=== PATIENT | male | born 1940 | race Caucasian/White ===

== ENCOUNTER → 2016-11-07 | Day surgery (SDC) | payer MEDICARE ==
[~2016-11-07] MED LIST: BACITRACIN OINT 28 GM TUBE TOP ONE; CEFAZOLIN 1 GM VIAL ONE; DEXAMETHASONE 4 MG/ML VIAL IV ONE; EPHEDrine 50 MG/ML VIAL IM ONE; FENTANYL 100 MCG/2 ML VIAL IV ONE; FENTANYL 100 MCG/2 ML VIAL IV PRN; HYDROCODONE 5 MG/ACETAMIN 325 MG TAB ONE; HYDROmorphone 1 MG INJECTION IV PRN; HYDROmorphone 2 MG/ML VIAL IM ONE; LABETALOL 20 MG/4 ML SYRINGE IV PRN; LIDOCAINE 100 MG PFS IV ONE; MEPERIDINE 25 MG/ML TUBEX IV PRN; MIDAZOLAM 2 MG/2 ML VIAL IV ONE; ONDANSETRON HCL 4 MG ODT TAB PO PRN; ONDANSETRON HCL 4 MG/2 ML VIAL IV ONE; ONDANSETRON HCL 4 MG/2 ML VIAL IV PRN; ONDANSETRON HCL 4 MG/2 ML VIAL ONE; OXYMETAZOLINE 0.05% NASAL SPRAY NAS ONE; PHENYLEPHRINE 10 MG/ML VIAL IC ONE; PROPOFOL 200 MG/20 ML VIAL IV ONE; SODIUM CHLORIDE 0.9% 10 ML FLUSH FLUSH ONE; SUCCINYLCHOLINE 20 MG/1 ML INJ 10 ML MDV IV ONE; hydrALAZINE 20 MG/ML VIAL IV PRN
--- NOTE | 2016-11-07 11:07 | HIM.ANES ---
Anesthesia Evaluation & Plan Diagnoses: CHRONIC SINUSITIS, UNSPECIFIED (11/07/16) - Focused Review of Systems Cardiac History: Yes: Hx Cardiac Disorders, Hx Abnormal Cholesterol/ Hyperlipidemia HEENT: Yes: Cataract Removal, Hx Vision Problem (PRESCIPTION GLASSES), Other HEENT Problems Hx Other HEENT Surgery: TONSILECTOMY Hx Other HEENT Problems: ALLERGIC RHINNIITS AND SINNUSITIS Gastrointestinal: Yes: Hx Gastroesophageal Reflux Disease (CONTROLLED WITH DIET) , Hx Gastrointestinal Disorders, Hx Colonoscopy (2016 NORMAL) Neurological/Musculoskeletal: Yes: Hx Back Pain No: Hx Neurological Disorders Psychological: No Hx Mental/Emotional Disorders Blood/Autoimmune: No: Hx AIDS, Hx Hepatitis (type) Smoking Status: Former smoker Surgical History: Yes: Appendectomy Other Surgical History: TONSILECTOMY - Focused Physical Exam NPO since: after Midnight Mallampati: Class II Thyromental Distance: Greater than 3 Neck: Full Range of Motion Dental: Normal - no significant findings Cardiovascular/Chest: Normal Respiratory: Lungs clear Any problems with anesthesia, including nausea and vomiting?: No Any relatives with a history of Malignant Hyperthermia?: No Does the patient have a history of Motion Sickness-: No Other: Allergies Allergy/AdvReac Type Severity Reaction Status Date / Time No Known Allergies Allergy Verified 11/02/16 18:05 Home Medications Medication Instructions Recorded Last Taken Type Acetaminophen [Tylenol Extra 500 mg PO Q4-6H PRN 11/02/16 Unknown History Strength] Simvastatin 40 mg PO HS 11/02/16 Unknown History Tamsulosin HCl [Flomax] 0.4 mg PO DAILY 11/02/16 Unknown History Height and Weight Patient's height 5 ft 2 in Patient's weight 77.111 kg - Anesthetic Plan Anesthesia Type: General ASA Class: 2 -: I have examined this patient and reviewed the medical record. The patient has been assessed prior to anesthesia. Risks and benefits of anesthesia and anesthetic technique options have been discussed and all questions answered. The patient accepts the risk and desires me to proceed with the planned anesthetic.
--- NOTE | 2016-11-07 14:55 | HIMOPRPT ---
DATE OF PROCEDURE: 11/07/16 PREOPERATIVE DIAGNOSES: 1. Deviated nasal septum, left. 2. Inferior turbinate hypertrophy, bilateral, right worse than left. 3. Nasal airway obstruction. 4. Chronic/recurrent pansinusitis, bilateral. 5. Recurrent frontal and nasofrontal sinusitis, bilateral. 6. Recurrent ethmoid sinusitis, bilateral. 7. Recurrent maxillary sinusitis, bilateral. 8. Recurrent sphenoid sinusitis, bilateral. 9. Tessie bullosa, left middle turbinates. POSTOPERATIVE DIAGNOSES: 1. Deviated nasal septum, left. 2. Inferior turbinate hypertrophy, bilateral, right worse than left. 3. Nasal airway obstruction. 4. Chronic/recurrent pansinusitis, bilateral. 5. Recurrent frontal and nasofrontal sinusitis, bilateral. 6. Recurrent ethmoid sinusitis, bilateral. 7. Recurrent maxillary sinusitis, bilateral. 8. Recurrent sphenoid sinusitis, bilateral. 9. Tessie bullosa, left middle turbinates. PROCEDURE: 1. Nasal septoplasty. 2. Submucosal resectioning of inferior turbinates, bilateral. 3. Endoscopic sinus surgery (bilateral nasofrontal sinusotomies with balloon sinuplasty, bilateral total ethmoidectomies, bilateral maxillary antrostomies with balloon sinuplasty and tissue debridement, bilateral sphenoidotomies). 4. Resectioning of left middle turbinates tessie bullosa. SURGEON: Conner Woodward DO. ANESTHESIA: General endotracheal with 1% lidocaine in 1:100,000 epinephrine local injection and 0.05% oxymetazoline topical. ESTIMATED BLOOD LOSS: 50 mL. COMPLICATIONS: None. SPECIMEN REMOVED: 1. Nasal and sinus contents. 2. Nasal septal cartilage and bone. ANESTHESIOLOGIST: Dr. Hernandez. ASSISTANTS: None. WOUND CLASSIFICATION: II. FLUID REPLACEMENT: Approximately 2000 mL lactated Ringer's. DRAINS: None. PACKINGS: 1. Nasopore. 2. Telfa gauze. OPERATIVE FINDINGS: The nasal septum was significantly deviated towards the left, involving both the cartilaginous and bony nasal septum. A maxillary crest spur protruding to the left nasal cavity was also noted. Bilateral inferior turbinates were boggy and hypertrophic, significantly worse on the right compared to the left. A moderately-sized left middle turbinates tessie bullosa was also noted. Diffuse mucosal thickening noted to bilateral nasofrontal recesses, ethmoidal sinuses, maxillary sinus cavities, and sphenoid sinuses. No nasal polyps or nasal masses noted. INDICATIONS: This patient is a 76-year-old male referred to my office for evaluation of persistent nasal and sinus congestion and pressure, a history of recurrent on chronic rhinosinusitis. The patient has been treated with multiple rounds of oral antibiotics. The patient's sinus infections continued to recur. He has tried various topical nasal steroid sprays, and oral steroids , as well as antihistamines, all with minimal improvement in his symptoms. A CT scan demonstrated significant nasal septal deviation to the left side. Inferior turbinate hypertrophy was also noted, worse on the right compared to the left. A left middle turbinates tessie bullosa was noted on CT scan. Narrowing of bilateral ostiomeatal units and infundibula also noted. Scattered mucosal thickening noted in all his paranasal sinuses was also seen on CT study. Options were reviewed and discussed with the patient. He is here today for elective nasal and sinus surgeries. DESCRIPTION OF THE PROCEDURE: All risks, benefits, potential complications, and alternatives were reviewed and discussed with the patient. The risk of CSF leak and rhinorrhea along with orbital injury were also discussed. All of the patient 's questions and concerns were fully answered and addressed, consent was signed and charted. The patient was identified in the preoperative holding area and brought to the operating room and placed on the operating table in supine position. General endotracheal anesthesia was administered by the anesthesiologist. Once the airway was secured, the patient was then placed in a semi-Omalley's position. The patient was then prepped and draped in the usual fashion as appropriate for nasal and sinus surgery. The nasal septum was infiltrated with approximately 8 mL of 1% lidocaine in 1: 100,000 epinephrine local injection. Approximately 2-3 min. was allowed to elapse. A #15 blade was then used to make a left hemitransfixion incision. This incision was carried down to the caudal cartilaginous septum. A Aaron elevator was then used to elevate a mucoperichondrial flap. This flap was extended superiorly, posteriorly as well as inferiorly using a [place] elevator. A 3-4 mm strip of cartilaginous septum was then resected off of the underlying bony maxillary crest and spur. A vertical incision through the cartilage was made just anterior to the starting point of the septal deviation. Posterior to this vertical incision, mucoperichondrial flap was then elevated. Lobito forceps was then used to resect the deviated cartilaginous septum. The [place] elevator was now used to elevate mucoperiosteal flaps posterior to the bony- cartilaginous junction. Lobito forceps were then used to resect the deviated bony septum. Mucoperiosteal flaps were then elevated lateral to the maxillary crest. This crest had a spur that protruded to the left nasal cavity. A 4 mm septal chisel was then used to resect the maxillary spur. Suction Bovie cautery was performed to control some of the oozing. The mucoperichondrial flaps were then reapproximated with 4-0 plain gut suture in a continuously running vertical mattress whipstitch. The hemitransfixion incision was then reapproximated with 5-0 chromic in a simple interrupted manner. Each nasal cavity was now copiously irrigated with saline. The saline and some clots and secretions were then suctioned away. Each inferior turbinate was now infiltrated with approximately 4 mL of 1% lidocaine in 1:100,000 epinephrine local injection. Approximately 2-3 minutes was allowed to elapse. A #15 blade was then used to make a stab incision to the anterior face of the inferior turbinates. A [place] elevator was now used to elevate a submucosal tunnel to the inferior turbinates. The ArthroCare Turbinator Coblation Wand was then used to submucosally coblate and resect the inferior turbinates. Two passes were performed to each inferior turbinate. The inferior turbinates were then medialized and in-fractured using a [place] elevator and then lateralized and out- fractured using a [place] bar. The anterior cut edges of the inferior turbinates were then coagulated using the Coblation device as well as suction Bovie cautery. The nasal cavities were then copiously irrigated with saline again. The saline and some blood and clots were then suctioned away. Each nasal cavity was now packed with cotton pledgets soaked with 0.05% oxymetazoline for several minutes. The Trov 3D stereotactic image guidance was then calibrated appropriately. The cotton pledgets from the left nasal cavity was then removed. The 0-degree endoscope was then placed in the left nasal cavity. The turbinate scissor was used to resect the left middle turbinate and tessie bullosa. Alejo-Cut forceps and 4.8 mm straight micro debrided shaver was also used to further resect the tessie bullosa. The balloon sinuplasty device was placed in the left nasal cavity the lighted guidewire was advanced up the nasofrontal recess, until transillumination was noted across the forehead. The balloon was then advanced over the lighted guidewire. This balloon was then inflated to a pressure of 12 cm of water. The balloon was then deflated, and removed from the nasal cavity. The ostial seeker was then used to medialized the uncinate process. The balloon catheter was placed in the left nasal cavity and the lighted guidewire was advanced through the infundibula until transillumination was noted across the cheek. The balloon was then advanced over the lighted guidewire and inflated to a pressure of 12 cm of water. This balloon was then deflated, and the entire device was removed from the nasal cavity. A straight [place] was then used to resect the ethmoid bulla. Straight [place] as well as 4.8 mm shaver was then used to further debride the posterior ethmoidal cells and create an anterior sphenoidotomy. Gentle debridement was performed throughout the ethmoidal sinus regions. Minor oozing was controlled with suction Bovie cautery. Cotton pledgets soaked with 0.05% oxymetazoline was then packed again in the left nasal cavity and sinus regions. The cotton pledgets from the right nasal cavity was then removed. The 0-degree endoscope was then placed in the right nasal cavity. The turbinate scissor was used to resect the right middle turbinate and tessie bullosa. Alejo-Cut forceps and 4.8 mm straight micro debrided shaver was also used to further resect the tessie bullosa. The balloon sinuplasty device was placed in the right nasal cavity the lighted guidewire was advanced up the nasofrontal recess, until transillumination was noted across the forehead. The balloon was then advanced over the lighted guidewire. This balloon was then inflated to a pressure of 12 cm of water. The balloon was then deflated, and removed from the nasal cavity. The ostial seeker was then used to medialized the uncinate process. The balloon catheter was placed in the right nasal cavity, however, the lighted guidewire could not be advanced through the infundibula to the right maxillary sinus. The ostial seeker was then used to create an antrostomy. The uncinate process was medialized. The antrostomy was then further debrided and enlarged using the 4.8 micro debrided shaver. A straight [place] was then used to resect the ethmoid bulla. Straight [place] as well as 4.8 mm shaver was then used to further debride the posterior ethmoidal cells and create an anterior sphenoidotomy. Gentle debridement was performed throughout the ethmoidal sinus regions. Minor oozing was controlled with suction Bovie cautery. Cotton pledgets soaked with 0.05% oxymetazoline was then packed again in the right nasal cavity and sinus regions. The cotton pledgets from the nasal cavities. Nasopore packing was placed in each nasal cavity in the ethmoidal sinus region. Each nasal cavity was then packed with cotton pledgets soaked with 0.05% oxymetazoline again. The oral cavity and oropharynx were suctioned away of old blood, clots, secretions. The cotton pledgets were removed. Each nasal cavity was now packed with Telfa gauze coated with bacitracin ointment. The patient tolerated the procedure. There were no complications. All of our counts were correct at the end of the case. A formal time-out was performed prior to the start of surgery. The patient was subsequently awakened and extubated by the anesthesiologist and brought out to the recovery area in satisfactory condition.
--- NOTE | 2016-11-07 15:36 | SC.ANESPOS ---
Post-Anesthesia Note LOC: Fully Awake Post-Anesthesia Assessment: Awake, Returned to Baseline, Hemodynamically Stable , Pain Control Adequate Phase I & II Recovery Complete: Yes Apparent Anesthesia Complication: No : N - Vital Signs Blood Pressure: 155/82 Pulse: 98 Resp Rate: 14 O2 Sat: 95 Temp: 97.9 F
[2016-11-07 15:46] VITALS: TEMP 97.8
[2016-11-07 16:37] VITALS: BP 164/85; PULSE 92
== END ==
LOC: SDC 10:35
PROVIDERS: ATTEND Otolaryngology Facial Plastic Surgery
PROC: 09BV4ZZ Excision of Left Ethmoid Sinus, Percutaneous Endoscopic Approach (ICD-10-PCS; 2016-11-07)
PROC: 09BU4ZZ Excision of Right Ethmoid Sinus, Percutaneous Endoscopic Approach (ICD-10-PCS; 2016-11-07)
PROC: 099W4ZZ Drainage of Right Sphenoid Sinus, Percutaneous Endoscopic Approach (ICD-10-PCS; 2016-11-07)
PROC: 099X4ZZ Drainage of Left Sphenoid Sinus, Percutaneous Endoscopic Approach (ICD-10-PCS; 2016-11-07)
PROC: 09NS4ZZ Release Right Frontal Sinus, Percutaneous Endoscopic Approach (ICD-10-PCS; 2016-11-07)
PROC: 09NT4ZZ Release Left Frontal Sinus, Percutaneous Endoscopic Approach (ICD-10-PCS; 2016-11-07)
PROC: 09BQ4ZZ Excision of Right Maxillary Sinus, Percutaneous Endoscopic Approach (ICD-10-PCS; 2016-11-07)
PROC: 09BR4ZZ Excision of Left Maxillary Sinus, Percutaneous Endoscopic Approach (ICD-10-PCS; 2016-11-07)
PROC: 09SM0ZZ Reposition Nasal Septum, Open Approach (ICD-10-PCS; principal; 2016-11-07 11:55)
PROC: 09BL0ZZ Excision of Nasal Turbinate, Open Approach (ICD-10-PCS; 2016-11-07 11:55)
DX: J34.2 Deviated nasal septum (principal); E78.5 Hyperlipidemia, unspecified; J34.3 Hypertrophy of nasal turbinates; J32.0 Chronic maxillary sinusitis; J32.1 Chronic frontal sinusitis; J32.2 Chronic ethmoidal sinusitis; J32.3 Chronic sphenoidal sinusitis; J32.4 Chronic pansinusitis; K21.9 Gastro-esophageal reflux disease without esophagitis; M19.90 Unspecified osteoarthritis, unspecified site; E78.00 Pure hypercholesterolemia, unspecified; J30.9 Allergic rhinitis, unspecified; Z87.891 Personal history of nicotine dependence
CPT/HCPCS: 30140; 30520; 31240; 31255; 31267; 31287; 31296; A9270; J0330; J0690; J1100; J1170; J2001; J2370; J2405; J2550; J3010; J3490; A4216; J2250